=== PATIENT | male | born 1955 | race Caucasian/White ===

== ENCOUNTER 2018-04-03 01:28 | Inpatient (IN) ==
[2018-04-03] MEDS ORDERED: Vancomycin Inj 1,000 MG in Sodium Chlor 0.9% Inj 250 ML IV.SIG ONE (02:19)
[2018-04-03] MEDS ORDERED: Sod Chloride 0.9% Inj 1,000 ML IV.SIG ONE (02:19)
[2018-04-03] MEDS ORDERED: HYDROmorphone PF Inj 2 MG/ML Vial IV.PUSH ONE (02:22)
[2018-04-03] MEDS ORDERED: Acetaminophen 325 MG Tablet PO ONE (02:22)
[2018-04-03] MEDS ORDERED: Piperacil/Tazo 4.5 GM Premix 4.5 GM/100 ML BAG IV.SIG SCH (02:30)
[2018-04-03 02:49] LABS: Baso # (Auto) 0.2 th/mm3 (0.0-0.2); Baso % (Auto) 1.6 % (0.0-2.0); Eos # (Auto) 0.1 th/mm3 (0.0-0.4); Eos % (Auto) 0.9 % (0.0-4.0); Hematocrit 42.1 % (39.0-51.0); Hemoglobin 14.8 gm/dL (13.0-17.0); Lymph # (Auto) 1.2 th/mm3 (1.0-4.8); Lymph % (Auto) 11.2 % (9.0-44.0); Mean Corpuscular HGB Conc 35.1 % (32.0-36.0); Mean Platelet Volume 8.5 fL (7.0-11.0); Mono # (Auto) 0.7 th/mm3 (0.0-0.9); Mono % (Auto) 6.6 % (0.0-8.0); Neut # (Auto) 8.8 th/mm3 (1.8-7.7); Neut % (Auto) 79.7 % (16.0-70.0); Platelet Count 229 th/mm3 (150-450); Red Blood Count 4.48 mil/mm3 (4.50-5.90); Red Cell Distribution Width 14.2 % (11.6-17.2); White Blood Count 11.1 th/mm3 (4.0-11.0)
--- NOTE | 2018-04-03 02:52 | XR ---
EXAM DATE: 04/03/2018 2:49 AM EST AGE/SEX: 62 years / Male INDICATIONS: Trauma a week ago to the right hand and now pain, swelling, and limited range of motion to the right arm. CLINICAL DATA: This is the patient's initial encounter. Patient reports that signs and symptoms have been present for 1 week and indicates a pain score of 10/10. MEDICAL/SURGICAL HISTORY: None. None. COMPARISON: [facility], FOREARM RIGHT 2V, 04/03/2018. . FINDINGS: Bony structures are intact and in normal alignment. Osseous density is normal. Mild chondrocalcinosis in the triangular fibrocartilage. No radiopaque foreign bodies seen. CONCLUSION: No acute bony findings Electronically signed by: Abraham Hussein MD Board Certified Radiologist 04/03/2018 2:51 AM EST
--- NOTE | 2018-04-03 02:54 | XR ---
EXAM DATE: 04/03/2018 2:48 AM EST AGE/SEX: 62 years / Male INDICATIONS: Trauma a week ago to the right hand and now pain, swelling, and limited range of motion to the right arm. CLINICAL DATA: This is the patient's initial encounter. Patient reports that signs and symptoms have been present for 1 week and indicates a pain score of 10/10. MEDICAL/SURGICAL HISTORY: None. None. COMPARISON: No prior exams available for comparison. FINDINGS: Mild arthritic changes at the wrist and elbow. No definite displaced fracture. CONCLUSION: No definite acute bony injury Electronically signed by: Abraham Hussein MD Board Certified Radiologist 04/03/2018 2:53 AM EST
[2018-04-03 02:56] LABS: Alanine Aminotransferase 44 U/L (12-78); Albumin 3.5 g/dL (3.4-5.0); Anion Gap 9 meq/L (5-15); Aspartate Aminotransferase 22 U/L (15-37); Blood Urea Nitrogen 14 mg/dL (7-18); Calcium 8.5 mg/dL (8.5-10.1); Carbon Dioxide 24.6 meq/L (21.0-32.0); Chloride 107 meq/L (98-107); Glomerular Filtration Rate 72 mL/min (>89); Glucose,Random 135 mg/dL (74-106); Potassium 3.6 meq/L (3.5-5.1); Sodium 141 meq/L (136-145)
[2018-04-03 02:58] LABS: Alkaline Phosphatase 96 U/L (45-117); Total Protein 7.6 g/dL (6.4-8.2)
[2018-04-03] MEDS ORDERED: Ketorolac Inj 30 MG/ML (IVP) Vial IV.PUSH ONE (03:14)
--- NOTE | 2018-04-03 03:21 | ED ---
HPI General Chief complaint: Skin/Abscess/Foreign Body Stated complaint: Arm injury Time Seen by Provider: 04/03/18 02:07 Source: patient Mode of arrival: ambulatory Limitations: no limitations History of Present Illness HPI narrative: 62 yo F c/o right hand pain and swelling. One week prior pt lacerated hand. Pt saw urgent care and was prescribed keflex which he has been taking. Right hand has become constant. There is migration to the medial epicondyle. The patient is right-hand dominant. No subjective fever reported. Patient took a Tylenol PM at about 11 PM tonight which conferred minimal if any analgesic benefit. Pain is worse with range of motion and palpation. Related Data Home Medications Medication Instructions Recorded Confirmed cephalexin [Keflex] 500 mg PO QID 04/03/18 04/03/18 testosterone enanthate 100 mg SUBCUT QWEEK 04/03/18 04/03/18 Allergies Allergy/AdvReac Type Severity Reaction Status Date / Time No Known Allergies Allergy Verified 04/03/18 01:41 Review of Systems ROS: all other systems reviewed are negative [facility] Medical History Medical History Patient denies medical problems (Acute) Surgical History Surgical History No history of previous surgery (Acute) Family History Family History Other Family history normal Social History Social History Substance History: No History of Abuse Second Hand Smoke Exposure: No Smoking Status: Never smoker How Often Do You Have a Drink Containing Alcohol: Never Recent Travel in [facility] within the Last 8 Weeks: No Recent Out of Country Travel within the Last 8 Weeks: Yes Immunization History Tetanus Immunization: <5 Years Exam Narrative Exam Narrative: GENERAL: 62-year-old male well-nourished well-developed mild to moderate distress due to pain SKIN: Focused skin assessment warm/dry. HEAD: Atraumatic. Normocephalic. EYES: Pupils equal and round. No scleral icterus. No injection or drainage. ENT: No nasal bleeding or discharge. Mucous membranes pink and moist. NECK: Trachea midline. No JVD. CARDIOVASCULAR: Regular rate and rhythm. No murmur appreciated. RESPIRATORY: No accessory muscle use. Clear to auscultation. Breath sounds equal bilaterally. GASTROINTESTINAL: Abdomen soft, non-tender, nondistended. Hepatic and splenic margins not palpable. MUSCULOSKELETAL: Right hand is diffusely swollen with swelling extending proximally to the level of the DRUJ. There is a healing curvilinear laceration in the first intertriginous space which is approximately 6 cm in total length. The laceration is healing by secondary intention. The area is erythematous with minimal tenderness. There is no crepitus in the region of the hand or in the elbow. Minimal TTP overlying medial epicondyle. NEUROLOGICAL: Awake and alert. No obvious cranial nerve deficits. Motor grossly within normal limits. Normal speech. PSYCHIATRIC: Appropriate mood and affect; insight and judgment normal. Course Initial Documented Vital Signs Temperature 100 F H 04/03/18 01:34 Pulse Rate 88 04/03/18 01:34 Respiratory Rate 14 04/03/18 01:34 Blood Pressure 158/78 H 04/03/18 01:34 Pulse Oximetry 96 04/03/18 01:34 Last Documented Vital Signs Temperature 100.4 F H 04/03/18 03:36 Pulse Rate 74 04/03/18 03:36 Respiratory Rate 18 04/03/18 03:36 Blood Pressure 158/78 H 04/03/18 01:34 Pulse Oximetry 98 04/03/18 03:36 Medical Decision Making [facility] Narrative Medical decision making narrative: WBC 11,100 Hb 14.8 Plt 229 79.9% neutrophils CMP normal R Hand xray no free air, generalized swelling present R Forearm xray no free air Vanco and zosyn started Temp at 315AM, 104.0 oral Presentation less concerning for flexor tenosynovitis. Pt on oral antibiotics, Kelfex. Admission Vanco/Zosyn Call to [facility] at 321AM. D/w Dr Gregg at aprox 345AM. Medical Screen Exam Complete: Yes Emergency Medical Condition: Yes Lab Data Result diagrams: 04/03/18 02:20 04/03/18 02:20 Lab Results 04/03/18 04/03/18 04/03/18 Range/Units 02:20 02:20 02:30 WBC 11.1 H (4.0-11.0) th/mm3 RBC 4.48 L (4.50-5.90) mil/mm3 Hgb 14.8 (13.0-17.0) gm/dL Hct 42.1 (39.0-51.0) % MCV 94.0 (80.0-100.0) fL MCH 33.0 (27.0-34.0) pg MCHC 35.1 (32.0-36.0) % RDW 14.2 (11.6-17.2) % Plt Count 229 (150-450) th/mm3 MPV 8.5 (7.0-11.0) fL Neut % (Auto) 79.7 H (16.0-70.0) % Lymph % (Auto) 11.2 (9.0-44.0) % [place] % (Auto) 6.6 (0.0-8.0) % Eos % (Auto) 0.9 (0.0-4.0) % Baso % (Auto) 1.6 (0.0-2.0) % Neut # (Auto) 8.8 H (1.8-7.7) th/mm3 Lymph # (Auto) 1.2 (1.0-4.8) th/mm3 [place] # (Auto) 0.7 (0.0-0.9) th/mm3 Eos # (Auto) 0.1 (0.0-0.4) th/mm3 Baso # (Auto) 0.2 (0.0-0.2) th/mm3 WBC Differential . Differential Comment Auto diff final Sodium 141 (136-145) meq/L Potassium 3.6 (3.5-5.1) meq/L Chloride 107 (98-107) meq/L Carbon Dioxide 24.6 (21.0-32.0) meq/L Anion Gap 9 (5-15) meq/L BUN 14 (7-18) mg/dL Creatinine 1.04 (0.60-1.30) mg/dL Estimated GFR 72 L (>89) mL/min Random Glucose 135 H (74-106) mg/dL Lactic Acid 1.1 (0.4-2.0) mmol/L Calcium 8.5 (8.5-10.1) mg/dL Total Bilirubin 0.5 (0.2-1.0) mg/dL AST 22 (15-37) U/L ALT 44 (12-78) U/L Alkaline Phosphatase 96 (45-117) U/L Total Protein 7.6 (6.4-8.2) g/dL Albumin 3.5 (3.4-5.0) g/dL Imaging Data Radiologist's impression: Forearm X-Ray 04/03/18 02:21 CONCLUSION: No definite acute bony injury Hand X-Ray 04/03/18 02:21 CONCLUSION: No acute bony findings Discharge Plan Discharge Disposition Patient Disposition: ED Admit(ED Internal Use Only) Discharge Order Discharge Orders: ED Use Only Admit Order (Routine); Ordered 04/03/18 Ordered By: Fritz Mcmullen Physicians Team ED Provider: Fritz Mcmullen Primary Care Provider: Primary Care Yarely Martinez Attending Provider: Jessica Gregg Status ED Status: Admitted Patient
[2018-04-03] MEDS ORDERED: Acetaminophen 325 MG Tablet PO PRN (03:46)
[2018-04-03] MEDS ORDERED: Bisacodyl 10 MG Supp RECTAL PRN (03:46)
[2018-04-03] MEDS: HYDROmorphone PF Inj 2 MG/ML Vial IV.PUSH PRN ×2 (03:50→07:26)
--- NOTE | 2018-04-03 03:56 | P.HPIM ---
History of Present Illness Primary Care Physician: No Primary Care Physician 62-year-old male with no significant past medical history presents to the emergency department for the evaluation of hand and forearm pain and swelling. On 03/27 the patient was operating a drill which slipped and cut his hand in between the first and second digits on the dorsal aspect of the hand. He was seen by his primary care physician in [place] who placed Steri-Strips on the wound and gave him Fucidin cream. The patient was reassessed on Saturday by his primary care provider who gave him Keflex as the patient was about to leave town on vacation. The physician informed the patient that if he developed redness in the wound to start taking the antibiotic. On Saturday, the patient awoke in with pain in his fingers and increasing redness on the dorsum of his hand. He began taking the Keflex. Since that time, the area has continued to swell and become erythematous. The patient reports severe pain in his fingers, hand and up to his elbow. He denies any fever/chills at home temperature of 100.4 on arrival in the emergency department. No chest pain or shortness of breath. No abdominal pain. No nausea/vomiting/diarrhea. No lateralizing signs /symptoms. Inpatient Certification Inpatient Certification: I certify that the inpatient services were ordered in accordance with Medicare regulations governing the order. This includes certification that hospital inpatient services are reasonable and necessary and in the case of services not specified as inpatient-only under 42 CFR 419.22(n), that they are appropriately provided as inpatient services in accordance to with the 2-midnight benchmark under 43 CFR 412.3(e) Estimated Total Length of Stay (Days): 3 Plans for Post Hospital Care: Home Review of Systems Review of Systems: all other systems reviewed are negative [facility] Medical History Medical History Patient denies medical problems (Acute) Surgical History Surgical History No history of previous surgery (Acute) Family History Family History Other Family history normal Social History Social History Substance History: No History of Abuse Second Hand Smoke Exposure: No Smoking Status: Never smoker How Often Do You Have a Drink Containing Alcohol: Never Recent Travel in [facility] within the Last 8 Weeks: No Recent Out of Country Travel within the Last 8 Weeks: Yes Immunization History Tetanus Immunization: <5 Years Medications and Allergies Allergies Allergy/AdvReac Type Severity Reaction Status Date / Time No Known Allergies Allergy Verified 04/03/18 01:41 Home Medications Medication Instructions Recorded Confirmed Type cephalexin [Keflex] 500 mg PO QID 04/03/18 04/03/18 History testosterone enanthate 100 mg SUBCUT QWEEK 04/03/18 04/03/18 History Active Medications: Active Medications Piperacillin/Tazobactam/Dextrose (Zosyn 4.5 Gm Premix) 4.5 gm in 100 mls @ 200 mls/hr IV.SIG ONCE FRANCO Last Infusion: 04/03/18 03:08 Dose: Infused Sodium Chloride (Ns Flush) 2 ml IV.FLUSH PRN PRN PRN Reason: FLUSH AFTER USING IV ACCESS Physical Exam Vital signs: Vital Signs 04/03/18 01:34 04/03/18 03:36 Temperature 100 F H 100.4 F H Pulse Rate 88 74 Respiratory Rate 14 18 Blood Pressure 158/78 H Pulse Oximetry 96 98 Intake & Output 04/02/18 04/02/18 04/03/18 06:59 18:59 06:59 Intake Total 100 / 100 Balance 100 / 100 Weight 86.183 kg Intake: IV 100 / 100 Zosyn 4.5 GM Premix 4.5 gm In 100 / 100 100 ml @ 200 mls/hr IV.SIG ONCE FRANCO Rx#:[id number] Narrative: Gen.: No acute distress Head: Normocephalic. Atraumatic. EENT: Pupils equal round and reactive to light. Nose without drainage. Airway intact. Throat without injection. Cardiovascular: Regular rate and rhythm. No murmurs, rubs or gallops. Respiratory: Lungs clear to auscultation bilaterally. No wheezes or rhonchi. Abdomen: Soft, nontender, nondistended. No peritoneal signs. Musculoskeletal: No gross deformities. No edema. Right hand with healing laceration between the thumb and forefinger. Surrounding edema and erythema that extends to the fingers and up the forearm to the elbow. The patient is unable to extend his fingers secondary to pain. Skin: No obvious rashes or erythema. Neuro: Sensory and motor grossly intact. Cranial nerves II through XII grossly intact. Results Labs CBC & Chem 7: 04/03/18 02:20 04/03/18 02:20 Imaging Impressions Forearm X-Ray 04/03/18 02:21 CONCLUSION: No definite acute bony injury Hand X-Ray 04/03/18 02:21 CONCLUSION: No acute bony findings Caprini VTE Risk Assessment Caprini VTE Risk Assessment: Moderate/High Risk (score >= 2) Caprini Risk Assessment Model: Point Value = 1 Point Value = 2 Point Value = 3 Point Value = 5 Age 41-60 Minor surgery BMI > 25 kg/m2 Swollen legs Varicose veins or History of unexplained or recurrent spontaneous Oral contraceptives or hormone replacement Sepsis (< 1 month) Serious lung disease, including pneumonia (< 1 month) Abnormal pulmonary function Acute myocardial infarction Congestive heart failure (< 1 month) History of inflammatory bowel disease Medical patient at bed rest Age 61-74 Arthroscopic surgery Major open surgery (> 45 min) Laparoscopic surgery (> 45 min) Malignancy Confined to bed (> 72 hours) Immobilizing plaster cast Central venous access Age >= 75 History of VTE Family history of VTE Factor V Leiden Prothrombin [id number] Lupus anticoagulant Anticardiolipin antibodies Elevated serum homocysteine Heparin-induced thrombocytopenia Other congenital or acquired thrombophilia Stroke (< 1 month) Elective arthroplasty Hip, pelvis, or leg fracture Acute spinal cord injury (< 1 month) Prophylaxis Regimen: Total Risk Factor Score Risk Level Prophylaxis Regimen 0-1 Low Early ambulation 2 Moderate Order ONE of the following: *Sequential Compression Device (SCD) *Heparin 5000 units SQ BID 3-4 Higher Order ONE of the following medications: *Heparin 5000 units SQ TID *Enoxaparin/Lovenox 40 mg SQ daily (WT < 150 kg, CrCl > 30 mL/min) *Enoxaparin/Lovenox 30 mg SQ daily (WT < 150 kg, CrCl > 10-29 mL/min) *Enoxaparin/Lovenox 30 mg SQ BID (WT < 150 kg, CrCl > 30 mL/min) AND/OR *Sequential Compression Device (SCD) 5 or more Highest Order ONE of the following medications: *Heparin 5000 units SQ TID (Preferred with Epidurals) *Enoxaparin/Lovenox 40 mg SQ daily (WT < 150 kg, CrCl > 30 mL/min) *Enoxaparin/Lovenox 30 mg SQ daily (WT < 150 kg, CrCl > 10-29 mL/min) *Enoxaparin/Lovenox 30 mg SQ BID (WT < 150 kg, CrCl > 30 mL/min) AND *Sequential Compression Device (SCD) Assessment and Plan Plan Assessment/plan: 1. Hand cellulitis failed outpatient therapy Vancomycin/Zosyn X-ray negative for bony abnormalities Concern for tennis overnight as, hand surgery consulted, appreciate assistance Dilaudid for pain FEN N.p.o. Electrolytes: Monitor and replete as needed NS at 100 cc/hour Holding pharmacologic anticoagulation until evaluated by hand surgery
[2018-04-03 04:30] LABS: Activated Partial Thrombo Time 30.3 sec (23.4-31.7); Prothrombin Time 10.4 sec (9.8-11.6)
[2018-04-03] MEDS: Sod Chloride 0.9% Inj 1,000 ML IV.CONT SCH ×2 (04:37→13:55)
[2018-04-03] MEDS: Senna/Docusate Sodium 8.6/50 MG Tablet PO SCH ×2 (08:04→20:26)
--- NOTE | 2018-04-03 16:50 | US ---
EXAM DATE: 04/03/2018 4:44 PM EST AGE/SEX: 62 years / Male INDICATIONS: Right hand cellulitis. CLINICAL DATA: This is the patient's initial encounter. Patient reports that signs and symptoms have been present for 2 weeks and indicates a pain score of 6/10. MEDICAL/SURGICAL HISTORY: . Right hand cellulitis. None. COMPARISON: No prior exams available for comparison. FINDINGS: Complex area in the dorsum of the hand near the base of the thumb measures 2.1 x 1.5 x 0.6 cm. There is suggestion of punctate areas of possible fluid within this collection but no large drainable absce ss. Diffuse soft tissue edema CONCLUSION: 1. Diffuse soft tissue edema characteristic of a reported history of cellulitis. 2. Complex area measuring 2.1 x 1.5 x 0.6 cm in the dorsum of the hand near the base of the thumb pr obably represents an inflammatory phlegmon. Possible small pockets of associated fluid but do not see sufficient volume at this point to warrant percutaneous drainage. Electronically signed by: Kel Callaway MD Board Certified Radiologist 04/03/2018 4:49 PM EST
--- NOTE | 2018-04-03 17:34 | MB ---
cc: Maurilio Field MD DATE: 04/03/2018 REASON FOR CONSULTATION: Right hand infection. HISTORY OF PRESENT ILLNESS: The patient is a 62-year-old right-hand dominant male presenting today to the ED with complaints of worsening pain and swelling involving the right hand and forearm for the past 2 days. The patient states 1 week ago, the patient was in [place] and was using a drill, which slipped and cut his right hand. The patient was initially seen by his primary care who did wound washing and Steri-stripping of the wound. The patient was again seen by his primary care and was given antibiotic Keflex if there were any worsening symptoms. The patient does notice worsening pain, swelling after moving to [facility] for the past 2-3 days. Denies any fever or chills. Denies any numbness. Complains of worsening pain with range of motion of the fingers. The patient also states his pain symptoms and his range of motion have improved since start of antibiotics early this morning. PAST MEDICAL AND SURGICAL HISTORY: Noted. Nonsignificant. PHYSICAL EXAMINATION: GENERAL: The patient is alert and oriented x3. EXTREMITIES: Examination of right upper extremity reveals laceration, which appears to be old, over the first dorsal webspace in a curvilinear fashion measuring about 3-4 cm. Surrounding swelling and erythema noted. Swelling also noted extending to the dorsal aspect of the wrist region. The patient also has erythema extending to the elbow region. Tenderness noted over the dorsal aspect of the hand in the first web space. No fluctuant mass noted. No drainage noted. The terminal degrees of flexion of the fingers is limited. He is able to make full extension of the fingers, which is associated with painful range of motion of the thumb. Terminal degrees of flexion and extension is associated with pain. He has intact sensation distally. He has intact distal circulation. His x-rays of both right hand and forearm was reviewed. Negative examination. His lab work was reviewed. He has a white count of 11.1 and a shift of 79%. Ultrasound of the right hand is pending. ASSESSMENT: This is a 62-year-old male with laceration of the right hand with cellulitis. PLAN: Limb elevation, finger range of motion. Continue with the antibiotics. The patient has been improving with the IV antibiotics. We will continue with observation. Awaiting ultrasound report regarding to rule out any collection which needs to be drained surgically. MD Nora Goss , 04:23 PM , 04:32 PM
[2018-04-04] MEDS: Sod Chloride 0.9% Inj 1,000 ML IV.CONT SCH ×2 (00:14→09:25)
[2018-04-04 05:59] LABS: Baso # (Auto) 0.1 th/mm3 (0.0-0.2); Eos # (Auto) 0.1 th/mm3 (0.0-0.4); Eos % (Auto) 1.7 % (0.0-4.0); Hematocrit 40.9 % (39.0-51.0); Hemoglobin 13.9 gm/dL (13.0-17.0); Lymph # (Auto) 1.4 th/mm3 (1.0-4.8); Lymph % (Auto) 24.2 % (9.0-44.0); Mean Corpuscular HGB Conc 33.9 % (32.0-36.0); Mean Corpuscular Hemoglobin 31.9 pg (27.0-34.0); Mean Corpuscular Volume 93.9 fL (80.0-100.0); Mean Platelet Volume 8.7 fL (7.0-11.0); Mono # (Auto) 0.5 th/mm3 (0.0-0.9); Mono % (Auto) 9.5 % (0.0-8.0); Neut # (Auto) 3.6 th/mm3 (1.8-7.7); Neut % (Auto) 63.6 % (16.0-70.0); Platelet Count 202 th/mm3 (150-450); Red Blood Count 4.35 mil/mm3 (4.50-5.90); Red Cell Distribution Width 14.7 % (11.6-17.2); White Blood Count 5.7 th/mm3 (4.0-11.0)
[2018-04-04 06:24] LABS: Calcium 7.9 mg/dL (8.5-10.1); Carbon Dioxide 26.1 meq/L (21.0-32.0); Potassium 3.8 meq/L (3.5-5.1)
[2018-04-04] MEDS: Senna/Docusate Sodium 8.6/50 MG Tablet PO SCH (08:36)
--- NOTE | 2018-04-04 11:45 | P.PNIM ---
Subjective Interval history: Patient reports he is feeling much better. Erythema resolved and he is able to make a fist. Pain is controlled. Physical Exam Vital signs: Vital Signs 04/03/18 12:00 04/03/18 16:00 04/03/18 20:00 Temperature 98.1 F 99.4 F 98.0 F Pulse Rate 79 83 83 Respiratory Rate 18 18 18 Blood Pressure 129/73 139/62 135/72 Pulse Oximetry 95 94 L 95 04/04/18 00:00 04/04/18 01:31 04/04/18 04:00 Temperature 98.5 F Pulse Rate 77 79 78 Respiratory Rate 18 Blood Pressure 140/67 Pulse Oximetry 97 04/04/18 05:38 04/04/18 08:00 Temperature 97.7 F 97.7 F Pulse Rate 76 73 Respiratory Rate 18 18 Blood Pressure 141/78 H 160/97 H Pulse Oximetry 95 94 L Intake & Output 04/03/18 04/04/18 04/04/18 18:59 06:59 18:59 Intake Total 500 / 500 1000 / 1000 1000 / 1000 Balance 500 / 500 1000 / 1000 1000 / 1000 Weight 91 kg 94.7 kg Intake: IV 500 / 500 1000 / 1000 1000 / 1000 NS Inj 1,000 ML @ 100 mls/hr IV 500 / 500 1000 / 1000 1000 / 1000 .CONT .Q10H [facility] Rx#:[id number] Other: # Voids 3 2 Date of Last Bowel Movement 04/03/18 # Bowel Movements 1 Weight On Admission 93.4 kg Narrative: Gen.: No acute distress Cardiovascular: Regular rate and rhythm. No murmurs, rubs or gallops. Respiratory: Lungs clear to auscultation bilaterally. No wheezes or rhonchi. Abdomen: Soft, nontender, nondistended. No peritoneal signs. Musculoskeletal: No gross deformities. No edema. Right hand with healing laceration between the thumb and forefinger. Erythema resolved. He is able to make a fist. Skin: No obvious rashes or erythema. Neuro: Sensory and motor grossly intact. Cranial nerves II through XII grossly intact. Results Labs CBC & Chem 7: 04/04/18 04:48 04/04/18 04:48 Imaging Imaging: Impressions Soft Tissue Ultrasound 04/03/18 00:00 CONCLUSION: 1. Diffuse soft tissue edema characteristic of a reported history of cellulitis. 2. Complex area measuring 2.1 x 1.5 x 0.6 cm in the dorsum of the hand near the base of the thumb probably represents an inflammatory phlegmon. Possible small pockets of associated fluid but do not see sufficient volume at this point to warrant percutaneous drainage. Assessment and Plan Plan 62-year-old male admitted with right hand cellulitis, failed outpatient therapy with Keflex. Right hand cellulitis: Failed outpatient therapy. - The patient was admitted and treated with IV Zosyn. His symptoms improved significantly and very quickly. - Discussed with hand surgery. Ultrasound reviewed. There is no significant fluid collection for drainage. - Patient is advised to keep the hand elevated. - He can be discharged on Levaquin after he received 1 more dose of IV antibiotics and is seen by Hand surgery later today. OK to DC today with antibiotics after he is seen by Hand surgery. LATIA Moya Discharge Planning: Discharge patient to home Condition on discharge: Improved Regular Diet as tolerated Ad Arti activity Rx written: Levaquin Follow-up with primary care physician Progress Note: Quality VTE Deep Vein Thrombosis/Pulmonary Embolism Present on Admission: No
--- NOTE | 2018-04-04 17:14 | P.PN ---
Subjective Interval history: complains of no pain decreased swelling no fever Physical Exam Vital signs: Vital Signs 04/03/18 20:00 04/04/18 00:00 04/04/18 01:31 Temperature 98.0 F 98.5 F Pulse Rate 83 77 79 Respiratory Rate 18 18 Blood Pressure 135/72 140/67 Pulse Oximetry 95 97 04/04/18 04:00 04/04/18 05:38 04/04/18 08:00 Temperature 97.7 F 97.7 F Pulse Rate 78 76 73 Respiratory Rate 18 18 Blood Pressure 141/78 H 160/97 H Pulse Oximetry 95 94 L 04/04/18 12:00 04/04/18 16:00 Temperature 98.0 F 98.1 F Pulse Rate 76 76 Respiratory Rate 18 18 Blood Pressure 156/79 H Pulse Oximetry 94 L 94 L Intake & Output 04/03/18 04/04/18 04/04/18 18:59 06:59 18:59 Intake Total 500 / 500 1000 / 1000 1000 / 1000 Balance 500 / 500 1000 / 1000 1000 / 1000 Weight 91 kg 94.7 kg Intake: IV 500 / 500 1000 / 1000 1000 / 1000 NS Inj 1,000 ML @ 100 mls/hr IV 500 / 500 1000 / 1000 1000 / 1000 .CONT .Q10H [facility] Rx#:[id number] Other: # Voids 3 2 Date of Last Bowel Movement 04/03/18 # Bowel Movements 1 Weight On Admission 93.4 kg Narrative: right upper extremity: laceration site healing well decreased swelling and redness able to make a full fist full extension of the fingers Results - Labs CBC & Chem 7: 04/04/18 04:48 04/04/18 04:48 Laboratory Results - last 24 hr 04/04/18 04/04/18 04:48 04:48 WBC 5.7 RBC 4.35 L Hgb 13.9 Hct 40.9 MCV 93.9 MCH 31.9 MCHC 33.9 RDW 14.7 Plt Count 202 MPV 8.7 Neut % (Auto) 63.6 Lymph % (Auto) 24.2 [place] % (Auto) 9.5 H Eos % (Auto) 1.7 Baso % (Auto) 1.0 Neut # (Auto) 3.6 Lymph # (Auto) 1.4 [place] # (Auto) 0.5 Eos # (Auto) 0.1 Baso # (Auto) 0.1 WBC Differential . Differential Comment Auto diff final Sodium 142 Potassium 3.8 Chloride 110 H Carbon Dioxide 26.1 Anion Gap 6 BUN 15 Creatinine 0.89 Estimated GFR 86 L Random Glucose 92 Calcium 7.9 L Assessment and Plan - Assessment (1) Laceration of right hand with complication Code(s): S61.411A - Laceration without foreign body of right hand, initial encounter Status: Acute - Plan patient has improved considerably cleared for discharge from hand surgery on po antibiotics follow up in office in one week time. (1) Laceration of right hand with complication Qualifiers: Encounter type: initial encounter Qualified Code(s): S61.411A - Laceration without foreign body of right hand, initial encounter
[2018-04-04] MEDS ORDERED: Piperacil/Tazo 2.25 GM Premix 2.25 GM/50 ML PIGGYBACK IV.SIG ONE (18:00)
== END 2018-04-04 18:15 | disposition home or self-care (01) | DRG 603 ==
LOC: NEPE 01:28 → NEDA 03:37 → N04 10:01
PROVIDERS: ADMIT Family Medicine; ATTEND Family Medicine
CPT/HCPCS: 73090; 73130; 76999; 80048; 80053; 83605; 85025; 85610; 85730; 87040; 90765; 90775; 96365; 96375; 97167; 99285; J1170; J1885; J2543; J3370; J7030; J7050